=== PATIENT | male | born 1940 | race Asian ===

== ENCOUNTER → 2017-08-26 | Outpatient (CLI) | payer MEDICARE ==
[~2017-08-26] VITALS: Ht 162.6 cm; Wt 64.5 kg
[2017-08-26 14:07] VITALS: BP 146/78
== END | disposition home or self-care (01) ==
LOC: SRCNTR 14:02
PROVIDERS: ATTEND Internal Medicine Critical Care Medicine
DX: J44.1 Chronic obstructive pulmonary disease with (acute) exacerbation (principal); I27.20 Pulmonary hypertension, unspecified; E04.2 Nontoxic multinodular goiter; B37.81 Candidal esophagitis; K27.9 Peptic ulcer, site unspecified, unspecified as acute or chronic, without hemorrhage or perforation; F17.200 Nicotine dependence, unspecified, uncomplicated
CPT/HCPCS: G0463

== ENCOUNTER → 2017-08-31 | Outpatient (CLI) | payer MEDICARE | END | disposition home or self-care (01) | LOC: RESP 09:23 | PROVIDERS: ATTEND Internal Medicine Critical Care Medicine | DX: J44.1 Chronic obstructive pulmonary disease with (acute) exacerbation (principal) | CPT/HCPCS: 94010; 94726; 94727; 94729 ==